=== PATIENT | female | born 1990 | race Caucasian/White ===

== ENCOUNTER 2017-01-30 09:56 | Emergency (ER) | payer MEDICAID ==
[~2017-01-30] VITALS: Ht 160 cm; Wt 108.9 kg
[2017-01-30 11:45] VITALS: BP_SYST 130
== END 2017-01-30 11:45 | disposition home or self-care (01) ==
LOC: SED 09:56
DX: J06.9 Acute upper respiratory infection, unspecified (principal); Z88.5 Allergy status to narcotic agent; Z88.6 Allergy status to analgesic agent; Z90.49 Acquired absence of other specified parts of digestive tract
CPT/HCPCS: 71010; 81025; 93005; 99284

== ENCOUNTER 2017-09-20 10:06 | Emergency (ER) | payer MEDICAID ==
[~2017-09-20] VITALS: Ht 160 cm; Wt 122.5 kg
[2017-09-20 10:15] VITALS: BP_SYST 153
[2017-09-20 12:13] VITALS: BP_SYST 146
== END 2017-09-20 12:11 | disposition home or self-care (01) ==
LOC: SED 10:06
DX: J32.9 Chronic sinusitis, unspecified (principal); E66.9 Obesity, unspecified; Z68.42 Body mass index [BMI] 45.0-49.9, adult; Z88.6 Allergy status to analgesic agent; Z88.5 Allergy status to narcotic agent
CPT/HCPCS: 99283

== ENCOUNTER 2017-10-13 15:21 | Emergency (ER) | payer MEDICAID ==
[~2017-10-13] VITALS: Ht 160 cm; Wt 122.5 kg
[2017-10-13 15:28] VITALS: BP_SYST 159
[2017-10-13 16:03] VITALS: BP_SYST 140
== END 2017-10-13 16:00 | disposition home or self-care (01) ==
LOC: SED 15:21
DX: H66.92 Otitis media, unspecified, left ear (principal); R03.0 Elevated blood-pressure reading, without diagnosis of hypertension; Z88.6 Allergy status to analgesic agent; Z88.5 Allergy status to narcotic agent; Z90.49 Acquired absence of other specified parts of digestive tract
CPT/HCPCS: 99283

== ENCOUNTER 2017-12-12 15:01 | Emergency (ER) | payer MEDICAID ==
[~2017-12-12] VITALS: Ht 160 cm; Wt 145.1 kg
[2017-12-12 15:11] VITALS: BP_SYST 125
[2017-12-12] MEDS ORDERED: KETOROLAC TROMETHAMINE 60 MG/2 ML VIAL IM ONE (15:45)
[2017-12-12 16:08] VITALS: BP_SYST 125
== END 2017-12-12 16:07 | disposition home or self-care (01) ==
LOC: SED 15:01
DX: H60.91 Unspecified otitis externa, right ear (principal); Z88.6 Allergy status to analgesic agent; Z88.1 Allergy status to other antibiotic agents
CPT/HCPCS: 96372; 99283; J1885

== ENCOUNTER 2019-03-24 06:22 | Emergency (ER) | payer MEDICAID ==
[~2019-03-24] VITALS: Ht 160 cm; Wt 117.9 kg
[2019-03-24 06:32] VITALS: BP_SYST 164
--- NOTE | 2019-03-24 06:32 | NUR ---
Patient to ER bed 7 to gown for evaluation. Side rails up.
--- NOTE | 2019-03-24 06:33 | NUR ---
Patient complains of sore throat since Saturday but states it went away. Yesterday she noticed that she had a headache around 1pm with fever. Per patient headache is 9/10 and has vomiting. No other injuries/complaints per patient or noted.
--- NOTE | 2019-03-24 06:39 | NUR ---
ER Dr. Gallardo at bedside examining patient.
[2019-03-24] MEDS ORDERED: KETOROLAC TROMETHAMINE 60 MG/2 ML VIAL IM ONE (06:45)
[2019-03-24] MEDS ORDERED: ONDANSETRON HCL 4 MG/2 ML VIAL IM ONE (06:45)
[2019-03-24 07:21] VITALS: BP_SYST 155
--- NOTE | 2019-03-24 07:23 | NUR ---
dPatient given written and verbal discharge instructions and verbalizes understanding. ER MD discussed with patient the results and treatment provided. Patient in stable condition. ID arm band removed. Rx of zofran and motrin given. Patient educated on pain management and to follow up with PMD. Pain Scale 0. Opportunity for questions provided and answered. Medication side effect fact sheet provided.
== END 2019-03-24 07:21 | disposition home or self-care (01) ==
LOC: SED 06:22
DX: R51 Headache (principal); R03.0 Elevated blood-pressure reading, without diagnosis of hypertension; Z88.5 Allergy status to narcotic agent; Z88.6 Allergy status to analgesic agent
CPT/HCPCS: 96372; 99283; J1885; J2405